=== PATIENT | male | born 1995 | race American Indian/Alaskan Native ===

== ENCOUNTER 2017-02-08 19:43 | Emergency (ER) | payer SELFPAY ==
[2017-02-08 20:09] VITALS: BP 131/84
[2017-02-08] MEDS ORDERED: NORCO 5/325 PO ONE (21:55)
[2017-02-08] MEDS ORDERED: VEETIDS PO ONE (22:00)
--- NOTE | 2017-02-08 22:00 | Emergency Department Report ---
HPI - General Chief Complaint: Dental/Oral Time Seen by Provider: 02/08/17 21:45 - HPI HPI: Patient here for tooth abscess the left lower tooth. He said it started 3 days ago. He said he has been using Aleve, Motrin and Advil without any relief. He denies any injury to mouth. Denies any tongue swelling. Reported left facial swelling. He said his tooth had a crown on it and it came off and then the tooth underneath itr and now it's painful at 8 out of 10 and feels achy. Denies any sore throat, drooling. Denies any fever or chills. Denies any cough , nasal congestion or sinus pressure. Patient said he has access to dental insurance but he has still find a dentist. Pain is worse with eating in. Pain medication and that he takes makes it slightly better but does not completely relieve his pain. ED Past Medical Hx - Past Medical History Previous Medical History?: No - Surgical History Past Surgical History?: No - Family History Family history: hypertension - Social History Smoking Status: Current Every Day Smoker Substance Use Type: None Other Social History: Lives with parents - Medications Home Medications: Home Medications Medication Instructions Recorded Confirmed Last Taken Type Acetaminophen/Codeine [Tylenol 1 tab PO Q6H PRN #12 tab 02/08/17 Unknown Rx /Codeine # 3 tab] Clindamycin [Clindamycin CAP] 300 mg PO Q8H #30 cap 02/08/17 Unknown Rx ED Review of Systems ROS: Stated complaint: MOUTH SWOLLEN Other details as noted in HPI Comment: All other systems reviewed and negative Constitutional: denies: chills, fever ENT: dental pain, other (left facial swelling). denies: ear pain, throat pain, congestion Respiratory: no symptoms reported Cardiovascular: denies: chest pain, palpitations, edema, syncope Gastrointestinal: denies: abdominal pain, nausea, vomiting Musculoskeletal: denies: back pain, arthralgia Skin: denies: rash Neurological: denies: headache, abnormal gait, vertigo Physical Exam - Physical Exam Vital Signs: Vital Signs 02/08/17 20:07 Temperature 98.2 F Pulse Rate 67 Respiratory 18 Rate Blood Pressure 131/84 O2 Sat by Pulse 100 Oximetry General: This is a 21-year-old male well-nourished well-developed in no acute distress. Physical Exam: Head: Normocephalic, atraumatic. No abrasions, laceration or contusion Neck: Supple, no adenopathy. Full range of motion. No C-spine tenderness. No muscular tenderness Eyes:Malcolm . sclera nonicteric, no conjunctival injection, bilateral pupils equal and reactive to light. Bilateral EOM intact. Normal accommodation. Ears: Bilateral TMs pearly ward, bilaterally EAC without any redness swelling or drainage. Nose: Malcolm nasal mucosa without any erythema or congestion. No drainage. Maxillary and frontal sinuses nontender to palpate Mouth: Moist, no pharyngeal exudate or erythema. Uvula is midline and oral airways patent. Tongue is normal . No oral lesion noted. No peritonsillar abscess. Patient with left facial swelling without any induration or erythema. Tooth #19 with fracture and no pulp exposure. Most of tooth #19 is eroded. Patient with positive tenderness around tooth and positive cellulitis. CV:S1, S2 regular rate and rhythm. Lungs: Clear to auscultate to lung gomez. Normal work of breathing. Abdomen: Soft, normal bowel sounds in all quadrants. No rigidity or distention. Extremity: No clubbing, cyanosis or edema. +2 pulses in all extremities. No neurovascular compromise. Capillary refill is less than 3 seconds. Skin: Clean dry and intact, no rash or lesions. PSYCH: Smiling and appropriate for age ED Course Vital Signs 02/08/17 20:07 Temperature 98.2 F Pulse Rate 67 Respiratory 18 Rate Blood Pressure 131/84 O2 Sat by Pulse 100 Oximetry - Reevaluation(s) Reevaluation #1: 02/08/17 22:00 Age and given Randall 5/325 2 tablets and penicillin VK 500 mg in emergency room. ED Medical Decision Making - Medical Decision Making ED course: Pt presented with left lower toothache and left facial swelling. Patient with diagnosis of cellulitis of the oral mucosa and soft tissue swelling. Diagnosis and treatment plan explained to patient and he voiced understanding. Patient have access to dentists and told him I will give him referral to [facility] dental clinic he needs to call in the morning to schedule an appointment or he can call his dental insurance company and asked for dentist this covered under his insurance. He voiced understanding of diagnosis and treatment plan and discharged home with prescription for clindamycin and Tylenol No. 3 and I also told him that since he has Motrin 800 he can take that in between Tylenol 3. Home with his family in stable condition Critical care attestation.: If time is entered above; I have spent that time in minutes in the direct care of this critically ill patient, excluding procedure time. ED Disposition Clinical Impression: Oral cellulitis, Localized soft tissue swelling, Toothache Disposition: TO HOME OR SELFCARE Is pt being admited?: No Does the pt Need Aspirin: No Condition: Stable Instructions: Cellulitis (ED), Toothache (ED), Dental Abscess (ED) Additional Instructions: Take antibiotic as prescribed. Please do not drive or operate heavy machinery while taking Tylenol No. 3 as this medication will cause drowsiness Called dentist to schedule an appointment for follow-up visit tooth abscess. Prescriptions: Acetaminophen/Codeine [Tylenol /Codeine # 3 tab] 1 tab PO Q6H PRN #12 tab PRN Reason: Toothache Clindamycin [Clindamycin CAP] 300 mg PO Q8H #30 cap Referrals: [facility] [Outside] - 02/09/17 Forms: Work/School Release Form(ED)
== END 2017-02-08 22:45 | disposition home or self-care (01) ==
LOC: ED 19:43
DX: K12.2 Cellulitis and abscess of mouth (principal); K08.89 Other specified disorders of teeth and supporting structures; F17.200 Nicotine dependence, unspecified, uncomplicated
CPT/HCPCS: 99282; 99283